=== PATIENT | female | born 1975 | race Hispanic/Latino ===

== ENCOUNTER → 2018-07-15 | Day surgery (SDC) | payer OTHER ==
[~2018-07-15] MED LIST: ACETAMINOPHEN 1000 MG/100 ML IV ONE; BLACKSEED OIL PO; BUPIVACAINE HCL 0.5% INJ 30 ML VIAL INJ ONE; CEFAZOLIN SOD 1 GM VIAL ONE; DEXAMETHASONE SOD PHOS INJ 4 MG/ML VIAL ONE; FENTANYL CITRATE/PF 100MCG/2 ML INJ ONE; IBUPROFEN400 MG PO; KETOROLAC TROMETHAMINE 30 MG/ML VIAL ONE; LIDOCAINE HCL 2% LOCAL INJ 5 ML SDV VIAL INJ ONE; ONDANSETRON HCL INJ 2 MG/ML VIAL ONE; PROPOFOL IV EMULSION 10 MG/ML 20 ML VIAL ONE; SEVOFLURANE INHAL SOLN 250 ML PEN BTL ONE
--- NOTE | 2018-07-18 15:31 | Operative Report ---
DATE OF PROCEDURE: July 15, 2018 PREOPERATIVE DIAGNOSES 1. Left heel spur. 2. Left hallux limitus. POSTOPERATIVE DIAGNOSES 1. Left heel spur. 2. Left hallux limitus. PLANNED PROCEDURES 1. Left excision of heel spur. 2. Left cheilectomy. SURGEON: Funmilayo ROMO DPM NAILER MACHINE: Anjelica Joseph DPM ANESTHESIA: General with a postoperative block consisting of 20 mL of 0.5% Marcaine plain. HEMOSTASIS: Pneumatic thigh tourniquet set at 350 mmHg for a total time of approximately 40 minutes. MATERIALS: Vicryl 2-0, 3-0 Vicryl, 4-0 Prolene. One TLS drain. ESTIMATED BLOOD LOSS: Less than 10 mL. PATHOLOGY: None. DETAILS OF PROCEDURE: Patient was seen in the preoperative waiting room where the correct procedure and site were identified. The patient was brought to the operating room and placed on the operating table in the supine position. General anesthesia was initiated at this time. A well-padded pneumatic tourniquet was placed about the patient's left thigh. The left foot, ankle and leg were then scrubbed, prepped and draped in the usual aseptic manner. The left foot, ankle and leg were exsanguinated with an Esmarch bandage, and the pneumatic thigh tourniquet was inflated to 350 mmHg for a total time of approximately 40 minutes. Attention was directed to the medial aspect of the patient's left heel where a 3-cm linear incision was made directly over the medial calcaneal tuberosity. Incision was carried through the subcutaneous tissue, them from deeper underlying structures. All vital neurovascular structures were identified, retracted medially and laterally, and all bleeders were cauterized or ligated as deemed necessary. Next, utilizing Metzenbaum scissors, the plantar fascia was identified dorsally and plantarly and was cut approximately one-third to one-half. The dissection was carried down to the level where the heel spur was easily identified. Utilizing osteotome, mallet, rongeur and rasp, the heel spur was excised and smoothed to anatomic alignment. This was confirmed via intraoperative fluoroscopy. The wound was then flushed with copious amounts of sterile saline. Deep tissues were reapproximated with 2-0 Vicryl, subcutaneous tissue with 3-0 Vicryl, and the skin was closed using a running interlocking stitch with 4-0 Prolene. Prior to wound closure, one size-7 TLS drain was placed. Next, attention was directed to the distal aspect of the 1st metatarsophalangeal joint where a 4-cm linear incision was made directly over the joint medial to the extensor hallucis longus tendon. The incision was carried through subcutaneous tissues, them from deeper underlying structures. All vital neurovascular structures were identified, retracted medially and laterally. All bleeders were cauterized or ligated as deemed necessary. At this point, a linear capsulotomy was performed at the level of the 1st metatarsophalangeal joint. The joint was freed of capsular and ligamentous attachments, leaving the periosteum intact. Next, attention was directed to the dorsal aspect of the 1st metatarsal head where a large exostosis was noted. Utilizing a sagittal saw, this was excised and passed off to the back table. Next, utilizing a rotary bur, the 1st metatarsal head was smoothed to anatomic alignment. Next, the wound was flushed with copious amounts of sterile saline. Capsular and deep tissue were reapproximated with 2-0 Vicryl, subcutaneous tissue with 3-0 Vicryl, and the skin was closed using a running, interlocking stitch with 4-0 Prolene. The incision sites were dressed with Adaptic, 4 x 4's, Kerlix, Dann wrap, and a postop shoe. Patient tolerated the procedure and anesthesia well. Patient was transferred to postoperative recovery unit with vital signs stable and vascular status intact. Patient was monitored there for a short period of time before being sent home with the following written and oral instructions: 1. Keep the dressing clean, dry and intact. 2. The patient is to remain nonweightbearing to the left lower extremity, to avoid any ambulation until being seen in the office. 3. The patient was given the office number and instructed to contact us if any problems should arise. Dictated by Anjelica Joseph DPM. Job#: [id number] THOMAS NUNEZ
== END | disposition home or self-care (01) ==
LOC: OR 05:16
PROVIDERS: ATTEND Podiatrist Foot & Ankle Surgery
DX: M77.32 Calcaneal spur, left foot (principal); M20.5X2 Other deformities of toe(s) (acquired), left foot; G47.33 Obstructive sleep apnea (adult) (pediatric)
CPT/HCPCS: 28119; 28289; J0690; J1100; J1885; J2001; J2405